=== PATIENT | male | born 1985 | race Caucasian/White ===

== ENCOUNTER 2017-01-07 21:31 | Emergency (ER) | payer MEDICAID ==
[~2017-01-07] VITALS: Ht 180.3 cm; Wt 82.8 kg
[~2017-01-07 21:31] MED LIST: ATEN25TA PO
[2017-01-07] MEDS ORDERED: ACETAMINOPHEN 325 MG TABLET ONE (22:26)
[2017-01-07] MEDS ORDERED: ONDANSETRON ODT 4 MG ONE (22:26)
[2017-01-07] MEDS ORDERED: ACETAMINOPHEN 325 MG TABLET PO ONE (22:30)
[2017-01-07] MEDS ORDERED: DICYCLOMINE 10 MG CAPSULE PO ONE (22:30)
[2017-01-07] MEDS ORDERED: ONDANSETRON ODT 8 MG PO ONE (22:30)
[2017-01-07 22:42] LABS: HEMATOCRIT 41.3 % (39.2-51.8)
[2017-01-07 22:47] LABS: BLOOD UREA NITROGEN 9 mg/dL (7-18)
[2017-01-07 22:53] LABS: ASPARTATE AMINO TRANSFERASE 22 U/L (15-37)
[2017-01-07 23:09] VITALS: BP 121/79
== END 2017-01-07 23:12 | disposition home or self-care (01) ==
LOC: ED 23:06
DX: R10.84 Generalized abdominal pain (principal); R11.2 Nausea with vomiting, unspecified; R19.7 Diarrhea, unspecified
CPT/HCPCS: 36415; 80053; 83690; 85025; 99284; Q0162

== ENCOUNTER 2017-04-19 17:01 | Emergency (ER) | payer MEDICAID ==
[~2017-04-19] VITALS: Ht 180.3 cm; Wt 86.3 kg
[2017-04-19 17:15] VITALS: BP 144/85
[2017-04-19 17:57] LABS: RAPID INFLUENZA A Negative (Negative); RAPID INFLUENZA B Negative (Negative)
[2017-04-19] MEDS ORDERED: ACETAMINOPHEN 500 MG TABLET PO ONE (18:00)
[2017-04-19] MEDS ORDERED: ACETAMINOPHEN 500 MG TABLET ONE (18:37)
== END 2017-04-19 18:47 | disposition home or self-care (01) ==
LOC: ED 18:20
DX: R05 Cough (principal)
CPT/HCPCS: 71020; 87400; 99285

== ENCOUNTER 2017-10-20 17:24 | Emergency (ER) | payer MEDICAID ==
[~2017-10-20] VITALS: Ht 180.3 cm; Wt 73.6 kg
[2017-10-20 17:40] VITALS: BP 117/72
== END 2017-10-20 19:20 | disposition home or self-care (01) ==
LOC: ED 19:14
DX: T16.1XXA Foreign body in right ear, initial encounter (principal); F17.200 Nicotine dependence, unspecified, uncomplicated; X58.XXXA Exposure to other specified factors, initial encounter; Y93.9 Activity, unspecified; Y92.89 Other specified places as the place of occurrence of the external cause; Y99.8 Other external cause status
CPT/HCPCS: 69200; 99284

== ENCOUNTER 2018-02-07 12:46 | Emergency (ER) | payer MEDICAID ==
[~2018-02-07] VITALS: Ht 180.3 cm; Wt 71.7 kg
[2018-02-07 13:00] VITALS: BP 134/78
[2018-02-07 13:52] LABS: BASOPHILS # (AUTO) 0.06 x10^3/uL (0-0.1); BASOPHILS % (AUTO) 1 % (0-1); EOSINOPHILS # (AUTO) 0.08 x10^3/uL (0-0.4); EOSINOPHILS % (AUTO) 1 % (1-7); LYMPHOCYTES # (AUTO) 3.09 x10^3/uL (1-3.4); LYMPHOCYTES % (AUTO) 27 % (22-44); MD NO; MEAN CORPUSCULAR HEMOGLOBIN 30.8 pg (27.5-34.5); MEAN CORPUSCULAR HGB CONC 34.3 g/dL (33.2-36.2); MEAN CORPUSCULAR VOLUME 89.7 fL (81-97); MEAN PLATELET VOLUME 8.6 fL (7.4-10.4); MONOCYTES # (AUTO) 0.54 x10^3/uL (0.2-0.8); MONOCYTES % (AUTO) 5 % (2-9); NEUTROPHILS # (AUTO) 7.66 x10^3/uL (1.8-6.8); NEUTROPHILS % (AUTO) 67 % (42-75); PLATELET COUNT 282 x10^3/uL (130-400); RED BLOOD COUNT 5.01 x10^6/uL (4.38-5.82); RED CELL DISTRIBUTION WIDTH 14.5 % (9.4-14.8)
[2018-02-07 14:03] LABS: ALBUMIN 3.8 g/dL (3.4-5.0); ANION GAP 4 mmol/L (5-15); CALCIUM 8.4 mg/dL (8.5-10.1); CHLORIDE 111 mmol/L (98-107)
[2018-02-07 14:04] LABS: CREATININE 0.96 mg/dL (0.7-1.3)
[2018-02-07 14:05] LABS: ACETAMINOPHEN < 2 mcg/mL (10-30)
[2018-02-07 15:01] LABS: BARBITURATE SCREEN, URINE Negative (Negative); BENZODIAZEPINE SCREEN, URINE Negative (Negative); CANNABINOID SCREEN, URINE Positive (Negative); COCAINE SCREEN, URINE Negative (Negative); METHADONE SCREEN, URINE Negative (Negative); OPIATE SCREEN, URINE Negative (Negative)
[2018-02-07 15:09] LABS: AMPHETAMINE SCREEN, URINE Negative (Negative)
== END 2018-02-07 17:20 | disposition left against medical advice (07) ==
LOC: ED 13:40
DX: F32.89 Other specified depressive episodes (principal); F17.200 Nicotine dependence, unspecified, uncomplicated
CPT/HCPCS: 36415; 80048; 80307; 80329; 82040; 85025; 99284; G0480

== ENCOUNTER 2018-02-21 14:59 | Emergency (ER) | payer MEDICAID ==
[~2018-02-21] VITALS: Ht 180.3 cm; Wt 70.0 kg
[2018-02-21 15:37] LABS: ALANINE AMINOTRANSFERASE 22 U/L (12-78); ALBUMIN 4.2 g/dL (3.4-5.0); ANION GAP 6 mmol/L (5-15); CALCIUM 8.8 mg/dL (8.5-10.1); CHLORIDE 111 mmol/L (98-107); CREATININE 0.96 mg/dL (0.7-1.3)
[2018-02-21 15:38] LABS: BASOPHILS # (AUTO) 0.05 x10^3/uL (0-0.1); BASOPHILS % (AUTO) 1 % (0-1); EOSINOPHILS # (AUTO) 0.17 x10^3/uL (0-0.4); EOSINOPHILS % (AUTO) 2 % (1-7); LYMPHOCYTES # (AUTO) 3.17 x10^3/uL (1-3.4); LYMPHOCYTES % (AUTO) 37 % (22-44); MD NO; MEAN CORPUSCULAR HEMOGLOBIN 30.6 pg (27.5-34.5); MEAN CORPUSCULAR HGB CONC 33.7 g/dL (33.2-36.2); MEAN CORPUSCULAR VOLUME 90.8 fL (81-97); MEAN PLATELET VOLUME 8.9 fL (7.4-10.4); MONOCYTES # (AUTO) 0.57 x10^3/uL (0.2-0.8); MONOCYTES % (AUTO) 7 % (2-9); NEUTROPHILS # (AUTO) 4.61 x10^3/uL (1.8-6.8); NEUTROPHILS % (AUTO) 54 % (42-75); PLATELET COUNT 265 x10^3/uL (130-400); RED BLOOD COUNT 4.91 x10^6/uL (4.38-5.82); RED CELL DISTRIBUTION WIDTH 14.3 % (9.4-14.8)
[2018-02-21 15:39] LABS: ALKALINE PHOSPHATASE 59 U/L (45-117); BILIRUBIN,TOTAL 0.7 mg/dL (0.2-1.0); TOTAL PROTEIN 7.3 g/dL (6.4-8.2)
[2018-02-21] MEDS ORDERED: SODIUM CHLORIDE FLUSH 10ML SYR IVF ONE (16:30)
[2018-02-21] MEDS ORDERED: OMNIPAQUE 350 MG/ML, 100ML BOTTLE ONE (17:35)
[2018-02-21 18:12] VITALS: BP 27/78
== END 2018-02-21 18:15 | disposition home or self-care (01) ==
LOC: ED 17:25
DX: G89.29 Other chronic pain (principal); R10.84 Generalized abdominal pain; B96.81 Helicobacter pylori [H. pylori] as the cause of diseases classified elsewhere; Z88.1 Allergy status to other antibiotic agents
CPT/HCPCS: 36415; 74177; 80053; 83690; 85025; 86677; 99285; Q9967